=== PATIENT | female | born 1990 | race Caucasian/White ===

== ENCOUNTER 2022-01-12 15:58 | Emergency (ER) | payer OTHER ==
[~2022-01-12] VITALS: Ht 167.6 cm; Wt 53.5 kg
[2022-01-12] MEDS ORDERED: PRENA1 TRUE CO1 EACH PO (20:44)
== END 2022-01-12 20:47 | disposition home or self-care (01) ==
LOC: ER 15:58
DX: O26.891 Other specified pregnancy related conditions, first trimester (principal); Z3A.01 Less than 8 weeks gestation of pregnancy; R63.0 Anorexia; Z20.822 Contact with and (suspected) exposure to COVID-19

== ENCOUNTER 2022-08-19 14:18 | Outpatient (CLI) | payer OTHER ==
[~2022-08-19 14:18] MED LIST: PRENA1 TRUE CO1 EACH PO
== END 2022-08-19 15:25 | disposition home or self-care (01) ==
LOC: PRENATAL 14:18
PROVIDERS: ATTEND Obstetrics & Gynecology Maternal & Fetal Medicine
DX: O36.80X0 Pregnancy with inconclusive fetal viability, not applicable or unspecified (principal); Z14.8 Genetic carrier of other disease; Z3A.12 12 weeks gestation of pregnancy

== ENCOUNTER 2022-10-12 16:04 | Outpatient (CLI) | payer OTHER | END 2022-10-12 16:59 | disposition home or self-care (01) | LOC: PRENATAL 16:04 | PROVIDERS: ATTEND Obstetrics & Gynecology Maternal & Fetal Medicine | DX: O35.9XX0 Maternal care for (suspected) fetal abnormality and damage, unspecified, not applicable or unspecified (principal); O35.3XX0 Maternal care for (suspected) damage to fetus from viral disease in mother, not applicable or unspecified; O44.00 Complete placenta previa NOS or without hemorrhage, unspecified trimester; Z3A.20 20 weeks gestation of pregnancy ==

== ENCOUNTER → 2023-01-05 | Outpatient (CLI) | payer OTHER | END | disposition home or self-care (01) | LOC: PRENATAL 15:18 | PROVIDERS: ATTEND Obstetrics & Gynecology Maternal & Fetal Medicine | DX: O26.849 Uterine size-date discrepancy, unspecified trimester (principal); O36.8199 Decreased fetal movements, unspecified trimester, other fetus; Z3A.32 32 weeks gestation of pregnancy ==

== ENCOUNTER 2023-02-03 08:39 | Inpatient (IN) | payer OTHER ==
[~2023-02-03] VITALS: Ht 162.6 cm; Wt 72.6 kg
[2023-02-23] MEDS ORDERED: PRENATAL TABLE1 EAC1 PO (09:12)
[2023-02-23] MEDS ORDERED: FOLIC ACID20 MG PO (09:12)
[2023-02-23 09:18] LABS: HEMATOCRIT 35.1 % (36.0-45.00); HEMOGLOBIN 11.7 g/dL (12.0-15.00); MEAN CELL VOLUME 94.6 fL (80.00-100.00); MEAN CORPUSCULAR HEMOGLOBIN 31.5 pg (27.00-32.0); MEAN CORPUSCULAR HGB CONC 33.3 g/dl (32.0-36.0); PLATELET COUNT 255 K/uL (150-450); RED BLOOD COUNT 3.71 M/uL (4.00-6.00); RED CELL DISTRIBUTION WIDTH 13.9 % (11.5-14.5)
[2023-02-23 09:33] LABS: PH,URINE 5.5 (5.0-8.0); URINE APPEARANCE Clear; URINE BILIRRUBIN Negative (NEGATIVE); URINE BLOOD Negative; URINE COLOR Yellow; URINE GLUCOSE Negative (NEGATIVE); URINE LEUKOCYTE Negative; URINE NITRATE Negative; URINE PROTEIN Negative (NEGATIVE); URINE UROBILINOGEN 0.2 E.U./dl
[2023-02-23 09:38] LABS: URINE BACTERIA 139.7 uL (0.0-1933); URINE EPITHELIAL CELLS 3.2 uL (0.0-38.8); URINE WBC 6.2 uL (0.0-23.2)
[2023-02-23 09:46] LABS: INR < 0.93; PARTIAL THROMBOPLASTIN TIME 24.5 SECONDS (22.0-34.0); PROTHROMBIN TIME 9.4 SECONDS (9.0-11.5)
[2023-02-23 09:54] LABS: URINE RBC 0.5 uL (0.0-20.8)
[2023-02-23 15:16] LABS: ABG PH 7.371 (7.35-7.45); ABG PO2 35.2 mmHg (80-100); ABG pCO2 38.7 mmHg (35-45); BICARBONATE 21.9 mmol/l (23-25); SaO2 64.9 %; Tco2 23.1 mmol/l; o2 21 %
[2023-02-23 21:53] LABS: HEMATOCRIT 34.4 % (36.0-45.00); HEMOGLOBIN 11.5 g/dL (12.0-15.00); MEAN CELL VOLUME 93.6 fL (80.00-100.00); MEAN CORPUSCULAR HEMOGLOBIN 31.3 pg (27.00-32.0); MEAN CORPUSCULAR HGB CONC 33.5 g/dl (32.0-36.0); PLATELET COUNT 242 K/uL (150-450); RED BLOOD COUNT 3.68 M/uL (4.00-6.00); RED CELL DISTRIBUTION WIDTH 13.8 % (11.5-14.5)
== END 2023-02-25 15:46 | disposition home or self-care (01) | DRG 807 ==
LOC: LDR 02-23 07:52 → OB/GYN 02-23 07:52 → LDR 02-28 08:36
PROVIDERS: ADMIT Obstetrics & Gynecology; ATTEND Obstetrics & Gynecology
PROC: 10E0XZZ Delivery of Products of Conception, External Approach (ICD-10-PCS; principal; 2023-02-23)
PROC: 4A1HXCZ Monitoring of Products of Conception, Cardiac Rate, External Approach (ICD-10-PCS; 2023-02-23)
DX: O80 Encounter for full-term uncomplicated delivery (principal); Z37.0 Single live birth; Z3A.39 39 weeks gestation of pregnancy; Z20.822 Contact with and (suspected) exposure to COVID-19